=== PATIENT | male | born 1995 | race Caucasian/White ===

== ENCOUNTER 2017-10-04 18:10 | Emergency (ER) | payer OTHER ==
[2017-10-04 19:15] LABS: UA SPECIFIC GRAVITY >=1.030 (1.005-1.035); microscopic required? YES; urine erythrocyte NEGATIVE (NEGATIVE)
[2017-10-04 19:48] VITALS: BP 102/69
== END 2017-10-04 19:48 | disposition home or self-care (01) ==
LOC: ED 18:10
PROVIDERS: Emergency Medicine Emergency Medical Services
DX: S39.012A Strain of muscle, fascia and tendon of lower back, initial encounter (principal); X50.0XXA Overexertion from strenuous movement or load, initial encounter; Y93.89 Activity, other specified; Y99.8 Other external cause status; Y92.89 Other specified places as the place of occurrence of the external cause
CPT/HCPCS: J1885

== ENCOUNTER 2018-04-22 03:10 | Emergency (ER) | payer OTHER ==
[2018-04-22 05:39] VITALS: BP 114/84
== END 2018-04-22 05:39 | disposition home or self-care (01) ==
LOC: ED 03:10
DX: F41.9 Anxiety disorder, unspecified (principal); Z90.89 Acquired absence of other organs
CPT/HCPCS: Q0092